=== PATIENT | female | born 1990 ===

== ENCOUNTER 2018-01-30 11:48 | Emergency (ER) | payer OTHER ==
[2018-01-30] MEDS ORDERED: Sodium Chloride 0.9% 1,000 ML IV ONE (12:52)
[2018-01-30 13:49] LABS: BASO % 0.5 % (0.0-2.0); EOS # 0.1 K/uL (0.0-0.7); EOS % 2.2 % (0.0-4.0); HEMOGLOBIN 12.6 g/dL (11.0-16.0); MEAN CELL VOLUME 90.9 fL (81.0-99.0); MEAN CORPUSCULAR HGB CONC 34.2 g/dL (33.0-37.0); MEAN PLATELET VOLUME 8.2 fL (7.2-11.7); MONO # 0.4 K/uL (0.0-0.8); MONO % 6.6 % (0.0-10.0); NEUT % 60.7 % (50.0-75.0); NRBC % 0.1 % (0.0-2.0); RBC 4.07 Mil/uL (3.80-5.20); RED CELL DISTRIBUTION WIDTH 13.5 % (11.5-14.5); WHITE BLOOD COUNT 6.6 K/uL (4.8-10.8)
[2018-01-30 13:59] LABS: ALB/GLOB RATIO 1.2 (1.0-2.1); ALBUMIN 4.9 g/dL (3.5-5.0); ALT/SGPT 18 U/L (9-52); AST/SGOT 22 U/L (14-36); BLOOD UREA NITROGEN 9 mg/dL (7-17); CALCIUM 9.5 mg/dl (8.6-10.4); GFR NON-AFRICAN AMERICAN > 60
--- NOTE | 2018-01-30 15:58 | US ---
Date of service: 01/30/18 Indication: Pelvic pain, bleeding Comparison: None available Technique: Real-time transabdominal pelvic ultrasound was performed. In addition a transvaginal pelvic ultrasound was necessary to better depict pelvic anatomy. Findings: The uterus measures approximately 9.2 x 5.1 x 7.6 cm. Anteverted. Cervix length measures approximately 3.3 cm. This is a twin gestation. Fetus A: The gestational sac measures 1.5 cm, and is compatible with a gestational age of 5 weeks 0 days . The crown-rump length measures 0.5 cm , and is compatible with a gestational age of 6 weeks 1 day. 2 mm yolk sac identified. heart motion was not detected at this time. Fetus B: The gestational sac measures 1.8 cm and is compatible with a gestational age of 6 weeks 1 day. The crown-rump length measures 0.4 cm, and is compatible with a gestational age of 6 weeks 0 days. 1 mm yolk sac identified. heart motion was not detected at this time. The left ovary measures 2.6 x 1.6 x 2.7 cm. Blood flow is demonstrated. The right ovary measures 2.3 x 2.1 x 2.2 cm. Blood flow is demonstrated. Probable corpus luteal cyst identified measuring approximately 1.6 x 1.1 x 1.6 cm. No significant pelvic free fluid identified. Impression: Twin gestation. Fetus A gestational age 5 weeks 1 day by gestational sac calculation and 6 weeks 0 days by crown-rump length calculation. heart motion was not detected at this time, may be due to early stage of . Follow-up as indicated. Fetus B gestational age 6weeks 1 day by gestational sac calculation and 6 weeks 0 days by crown-rump length calculation. heart motion was not detected at this time, may be due to early stage of . Follow-up as indicated. 1.6 x 1.1 x 1.6 cm probable right ovarian corpus luteal cyst. Advise an anomaly screen at 16-18 weeks gestational age
[2018-01-30 16:18] LABS: SQUAMOUS EPITHIAL 2 /hpf (0-5); URINE BACTERIA RARE (<OCC); URINE BILIRUBIN NEGATIVE (NEGATIVE); URINE BLOOD 2+ (NEGATIVE); URINE CLARITY Clear (Clear); URINE COLOR Straw (YELLOW); URINE GLUCOSE (UA) NORMAL (Normal); URINE LEUKOCYTE ESTERASE NEG Leu/uL (Negative); URINE PROTEIN NEGATIVE (NEGATIVE); URINE UROBILINOGEN NORMAL mg/dL (0.2-1.0)
--- NOTE | 2018-01-30 16:34 | C.PDOC ---
History Of Present Illness Patient presents to ED c/o vaginal spotting for the past 2 days, worse today. She has been using 3-4 panty liners daily. Patient is , currently approx 10wks by LMP (11/14/17). She denies abdominal or pelvic pain, vomiting , fever, dysuria. 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 Diana Santos - patient had outpatient blood work done this week but does not know results. Patient is also scheduled for outpatient ultrasound today, but same to ER instead due to symptoms. Time Seen by Provider: 01/30/18 12:52 Chief Complaint (Nursing): Female Genitourinary History Per: Patient History/Exam Limitations: no limitations Onset/Duration Of Symptoms: Days (2) Current Symptoms Are (Timing): Still Present Severity: Mild Abnormal Vaginal Bleeding: Yes Past Medical History Reviewed: Historical Data, Nursing Documentation, Vital Signs Vital Signs: Last Vital Signs Temp 98.3 F 01/30/18 12:42 Pulse 75 01/30/18 12:42 Resp 20 01/30/18 12:42 BP 102/70 01/30/18 12:42 Pulse Ox 99 01/30/18 17:03 - Medical History PMH: No Chronic Diseases Surgical History: No Surg Hx Family History: States: No Known Family Hx - Social History Hx Alcohol Use: No Hx Substance Use: No Review Of Systems Constitutional: Negative for: Fever, Chills Cardiovascular: Negative for: Chest Pain Respiratory: Negative for: Shortness of Breath Gastrointestinal: Negative for: Nausea, Vomiting, Abdominal Pain, Diarrhea Genitourinary: Positive for: Vaginal Bleeding. Negative for: Dysuria, Hematuria , Vaginal Discharge Physical Exam - Physical Exam Appears: Well, Non-toxic, No Acute Distress Oral Mucosa: Moist Cardiovascular: Rhythm Regular Respiratory: Normal Breath Sounds, No Rales, No Rhonchi, No Wheezing Gastrointestinal/Abdominal: Normal Exam, Bowel Sounds, Soft, No Tenderness Extremity: Normal ROM Extremity: Bilateral: Atraumatic, Normal Color And Temperature, Normal ROM Neurological/Psych: Oriented x3 ED Course And Treatment - Laboratory Results Result Diagrams: 01/30/18 13:34 01/30/18 13:34 O2 Sat by Pulse Oximetry: 99 (RA) Pulse Ox Interpretation: Normal - CT Scan/US TRANSVAGINAL US Other Rad Studies (CT/US): Read By Radiologist, Radiology Report Reviewed CT/US Interpretation: Accession No. : [id number]. Patient Name / ID : LAURY OCHOA / [id number]. Exam Date : 01/30/2018 14:42:15 ( Approved ). Study Comment : Sex / Age : F / 27Y. Creator : Zulay Busch MD. Dictator : Zulay Busch MD. Internet Programmer : [employer] Maker : Zulay Busch MD. Approver2 : Report Date : 01/30/2018 15:57:15. My Comment : . Date of service: 01/30/18. Indication: Pelvic pain, bleeding. Comparison: None available. Technique: Real-time transabdominal pelvic ultrasound was performed. In addition a transvaginal pelvic ultrasound was necessary to better depict pelvic anatomy. Findings: The uterus measures approximately 9.2 x 5.1 x 7.6 cm. Anteverted. Cervix length measures approximately 3.3 cm. This is a twin gestation. Fetus A: The gestational sac measures 1.5 cm, and is compatible with a gestational age of 5 weeks 0 days . The crown-rump length measures 0.5 cm , and is compatible with a gestational age of 6 weeks 1 day. 2 mm yolk sac identified. heart motion was not detected at this time. Fetus B: The gestational sac measures 1.8 cm and is compatible with a gestational age of 6 weeks 1 day. The crown-rump length measures 0.4 cm, and is compatible with a gestational age of 6 weeks 0 days. 1 mm yolk sac identified. heart motion was not detected at this time. . The left ovary measures 2.6 x 1.6 x 2.7 cm. Blood flow is demonstrated. The right ovary measures 2.3 x 2.1 x 2.2 cm. Blood flow is demonstrated. Probable corpus luteal cyst identified measuring approximately 1.6 x 1.1 x 1.6 cm. No significant pelvic free fluid identified. Impression: Twin gestation. Fetus A gestational age 5 weeks 1 day by gestational sac calculation and 6 weeks 0 days by crown-rump length calculation. heart motion was not detected at this time, may be due to early stage of . Follow-up as indicated. Fetus B gestational age 6weeks 1 day by gestational sac calculation and 6 weeks 0 days by crown-rump length calculation. heart motion was not detected at this time, may be due to early stage of . Follow-up as indicated. 1.6 x 1.1 x 1.6 cm probable right ovarian corpus luteal cyst. Advise an anomaly screen at 16-18 weeks gestational age Progress Note: Blood work, UA, Upreg and transvaginal US ordered and reviewed. Patient given IV NS bolus. 5:00pm- Called blood bank, they had an emergency and had to hold doing the type and screen. They will start it now, will take approx 30 min. 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 Patient to follow up with her in the office on Sunday. Disposition Counseled Patient/Family Regarding: Studies Performed, Diagnosis, Need For Followup - Disposition Referrals: Diana Santos MD [Staff Provider] - Disposition: HOME/ ROUTINE Disposition Time: 17:00 Condition: STABLE Additional Instructions: FOLLOW UP [facility] DR Musa SANTOS IN HER OFFICE SUNDAY, 02/01 RETURN TO EMERGENCY ROOM IF YOUR SYMPTOMS WORSEN Instructions: Bleeding With (DC) Forms: [employer] (Irish) Print Language: PASHTO - POA Present On Arrival: None - Clinical Impression Clinical Impression: Vaginal bleeding during
[2018-01-30 18:31] VITALS: BP 111/71; PULSE 65; RESP 18; TEMP 99.4; O2SAT 100
== END 2018-01-30 18:31 | disposition home or self-care (01) ==
LOC: C.ER 11:48
DX: O20.9 Hemorrhage in early pregnancy, unspecified (principal); Z3A.01 Less than 8 weeks gestation of pregnancy
CPT/HCPCS: 76805; 76817; 80053; 81001; 84702; 85025; 86850; 86900; 96360; 99285; J7030

== ENCOUNTER 2018-02-01 01:05 | Emergency (ER) | payer OTHER ==
[2018-02-01] MEDS ORDERED: Sodium Chloride 0.9% 500 ML IV ONE ×2 (01:37→01:45)
[2018-02-01 02:03] LABS: BASO % 0.5 % (0.0-2.0); EOS # 0.2 K/uL (0.0-0.7); EOS % 2.3 % (0.0-4.0); HEMOGLOBIN 11.4 g/dL (11.0-16.0); LYMPH % 24.8 % (20.0-40.0); MEAN CELL VOLUME 90.6 fL (81.0-99.0); MEAN CORPUSCULAR HEMOGLOBIN 31.2 pg (27.0-31.0); MEAN CORPUSCULAR HGB CONC 34.5 g/dL (33.0-37.0); MEAN PLATELET VOLUME 8.1 fL (7.2-11.7); MONO # 0.6 K/uL (0.0-0.8); NEUT # 5.2 K/uL (1.8-7.0); NEUT % 65.4 % (50.0-75.0); RBC 3.67 Mil/uL (3.80-5.20); RED CELL DISTRIBUTION WIDTH 13.5 % (11.5-14.5)
[2018-02-01 02:24] LABS: SQUAMOUS EPITHIAL 1 /hpf (0-5); URINE BACTERIA MOD (<OCC); URINE BILIRUBIN NEGATIVE (NEGATIVE); URINE BLOOD 3+ (NEGATIVE); URINE CLARITY Clear (Clear); URINE COLOR Red (YELLOW); URINE GLUCOSE (UA) NORMAL (Normal); URINE LEUKOCYTE ESTERASE NEG Leu/uL (Negative); URINE PROTEIN 2+ mg/dL (NEGATIVE); URINE UROBILINOGEN NORMAL mg/dL (0.2-1.0)
[2018-02-01 02:51] LABS: ALB/GLOB RATIO 1.4 (1.0-2.1); ALBUMIN 4.1 g/dL (3.5-5.0); ALT/SGPT 21 U/L (9-52); AST/SGOT 11 U/L (14-36); BLOOD UREA NITROGEN 9 mg/dL (7-17); CALCIUM 9.1 mg/dl (8.6-10.4); GFR NON-AFRICAN AMERICAN > 60
--- NOTE | 2018-02-01 03:09 | C.PDOC ---
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 The patient was seen on 01/30 for similar complaints. During her last visit she was 6 weeks with no heart. She reports feeling as a large, possible, tissue pass earlier today. The patient denies any fever , vomiting, nausea or diarrhea. Time Seen by Provider: 02/01/18 01:32 Chief Complaint (Nursing): Female Genitourinary History Per: Patient History/Exam Limitations: no limitations Onset/Duration Of Symptoms: Hrs Associated Symptoms: denies: Fever, Nausea, Vomiting, Diarrhea Recent travel outside of the [place]: No Past Medical History Reviewed: Historical Data, Nursing Documentation, Vital Signs Vital Signs: Last Vital Signs Temp 98.1 F 02/01/18 05:43 Pulse 63 02/01/18 05:43 Resp 18 02/01/18 05:43 BP 95/60 L 02/01/18 05:43 Pulse Ox 100 02/01/18 05:43 - Medical History PMH: No Chronic Diseases Surgical History: No Surg Hx Family History: States: Unknown Family Hx - Social History Hx Alcohol Use: No Hx Substance Use: No - Immunization History Hx Tetanus Toxoid Vaccination: No Hx Influenza Vaccination: No Hx Pneumococcal Vaccination: No Review Of Systems Except As Marked, All Systems Reviewed And Found Negative. Constitutional: Negative for: Fever Gastrointestinal: Negative for: Nausea, Vomiting, Diarrhea Genitourinary: Positive for: Vaginal Bleeding Physical Exam - Physical Exam Appears: Non-toxic, No Acute Distress Skin: Normal Color, Warm, Dry Head: Atraumatic, Normacephalic Oral Mucosa: Moist Cardiovascular: Rhythm Regular, No Murmur Respiratory: Normal Breath Sounds, No Rales, No Rhonchi, No Wheezing Gastrointestinal/Abdominal: Soft, No Tenderness Back: No CVA Tenderness Pelvic: Other (moderate pelvic bleeding) Extremity: Normal ROM Neurological/Psych: Oriented x3, Normal Speech ED Course And Treatment - Laboratory Results Result Diagrams: 02/01/18 01:58 02/01/18 01:58 Urine POC: Positive O2 Sat by Pulse Oximetry: 99 (RA) Pulse Ox Interpretation: Normal - CT Scan/US US , transvaginal Other Rad Studies (CT/US): Read By Radiologist, Radiology Report Reviewed CT/US Interpretation: FINDINGS: Beta-hCG level: The beta-hCG is 3653. Gestation: No IUP is seen. Uterus/cervix: An anteverted uterus measuring 8.9 x 4.9 x 5.7 cm. The endometrial stripe measures. 15 mm. Heterogeneous echogenic endometrial stripe likely representing blood products. No. myometrial mass. Ovaries: The right ovary is not seen. The left ovary measures 3.2 x 2.2 cm. There is a left ovarian. dominant follicle measuring 1.6 x 1.2 cm. Ovaries could not be imaged adequately due to patient's. intolerance to pain. Free fluid: None seen. IMPRESSION: No demonstrable intrauterine or extrauterine . With a positive test, the. differential diagnosis includes a recent spontaneous and very early intrauterine or extra. uterine . Careful follow-up including correlation with beta HCG levels is recommended. The possibility of ectopic cannot be excluded at this time. Progress Note: Ordered Beta- HCG, CMP, CBC, UA, Pelvic and transvaginal US. Patient was given IV Fluids in ED. On reeval pt is stable , Labs and OB US results dw pt , minimal vag bleed and catrina pain at this time - Pt will follow up with OB later today and understand to return if persistent heavy bleeding, abd paoin or worse Disposition Counseled Patient/Family Regarding: Diagnosis - Disposition Referrals: Diana Clifford MD [Staff Provider] - Disposition: HOME/ ROUTINE Disposition Time: 05:59 Condition: STABLE Additional Instructions: Please follow up with Dr Clifford later today Return to ER if severe abdominal pain, heavy flow bleeding , dizzy, weakness or worse Instructions: Miscarriage (DC) Forms: [employer] (Montenegrin) - Clinical Impression Clinical Impression: Spontaneous - PA / BREAKER BOSS / Resident Statement MD/ has reviewed & agrees with the documentation as recorded. - Scribe Statement The provider has reviewed the documentation as recorded by the Scribe (Lety Sepulveda) All medical record entries made by the Scribe were at my direction and personally dictated by me. I have reviewed the chart and agree that the record accurately reflects my personal performance of the history, physical exam, medical decision making, and the department course for this patient. I have also personally directed, reviewed, and agree with the discharge instructions and disposition.
[2018-02-01 03:52] VITALS: RESP 18
[2018-02-01 05:46] VITALS: BP 95/60; PULSE 63; TEMP 98.1
[2018-02-01 06:00] VITALS: O2SAT 99
--- NOTE | 2018-02-01 10:25 | US ---
Date of service: 02/01/2018 HISTORY: vaginal bleeding, passed clots COMPARISON: None available. TECHNIQUE: Transabdominal and transvaginal pelvic ultrasound was performed. FINDINGS: UTERUS: Measures 8.8 x 4.8 x 5.6 cm. Anteverted, normal in size and appearance. No fibroid or other mass lesion seen. ENDOMETRIUM: Measures 15 mm in diameter. Thick heterogeneous without evidence for retained products of conception. CERVIX: No cervical abnormality identified. RIGHT OVARY: Not visualized. LEFT OVARY: Not visualized. FREE FLUID: No significant free fluid noted. OTHER FINDINGS: None. IMPRESSION: No evidence of intrauterine gestational sac. The central endometrial echo complex is thick and heterogeneous. No adnexal mass or free fluid in the pelvis. A preliminary report was provided by [employer].
== END 2018-02-01 06:05 | disposition home or self-care (01) ==
LOC: C.ER 01:05
DX: O03.9 Complete or unspecified spontaneous abortion without complication (principal)
CPT/HCPCS: 76830; 76856; 80053; 81001; 84702; 85025; 99284; J7040